=== PATIENT | female | born 1985 | race African-American/Black ===

== ENCOUNTER 2016-12-03 18:38 | Emergency (ER) | payer MEDICAID, OTHER ==
[~2016-12-03] VITALS: Ht 175.3 cm; Wt 104.3 kg
[~2016-12-03 18:38] MED LIST: ALBUTEROL SULF8.5 GM INH; AMOXICILLIN500 MG ORAL; AZITHROMYCIN250 MG ORAL; BACTRIM-DS1 EA ORAL; CEPHALEXIN500 MG ORAL; CIPROFLOXACIN500 M2 ORAL; CYCLOBENZAPRINE10 MG ORAL; DIFLUCAN150 MG PO; HYDROCORTISONE30 G2 RC; IBUPROFEN600 MG ORAL; IMODIUM2 MG ORAL; KEFLEX500 MG ORAL; METRONIDAZOLE500 MG ORAL; NAPROSYN500 M1 ORAL; NKM; PROMETHAZINE-C118 M1 ORAL; RANITIDINE HCL150 MG ORAL; ROBITUSSIN DM5 ML ORAL
--- NOTE | 2016-12-03 19:27 | Emergency Room Report ---
History of Present Illness General Chief Complaint: General Complaint Source: Patient Present Illness HPI 31 Yo Female presents to the ED C/O cough at night x 7 days, in addition to progressive 7/10 in severity localized left knee pain s/p pop sensation. pt. states pain exacerbated with walking and bending her knee. denies trauma or fall. denies nausea/vomiting/ fevers/ chills, rashes. or abdominal pain. denies blood in the stool, or dark tarry stools. denies erythema, increased temperature to palpation, or instability of the joint. Denies numbness tingling or loss of sensation or gross motor movements of the extremities, incontinence of bowel or bladder. Denies CP, edema, Palpitations, LOC, AMS, dizziness, Changes in Vision, Sensation, paresthesias, or a sudden severe headache. Allergies: Coded Allergies: No Known Allergies (Unverified , 02/28/13) Patient History Past Medical History: see triage record Past Surgical History: none Pertinent Family History: none Last Menstrual Period: 5 days Now: No Immunizations: UTD Reviewed Nursing Documentation: PMH: Agreed, PSxH: Agreed Nursing Documentation-PMH Past Medical History: No Stated History Hx Dialysis: No - UTI Review of Systems All Other Systems: negative except mentioned in HPI Physical Exam Vital Signs Date Time Temp Pulse Resp B/P Pulse Ox O2 Delivery O2 Flow Rate FiO2 12/03/16 18:42 98.2 76 16 96/64 98 Room Air Sp02 EP Interpretation: reviewed, normal General Appearance: no apparent distress, alert, GCS 15, non-toxic Head: normocephalic, atraumatic Eyes: bilateral eye PERRL, bilateral eye normal inspection ENT: hearing grossly normal, normal pharynx, no angioedema, normal voice Neck: full range of motion, supple/symm/no masses Respiratory: lungs clear, normal breath sounds, speaking full sentences Cardiovascular #1: regular rate, rhythm, no edema Gastrointestinal: normal bowel sounds, non tender, soft, no guarding, no rebound Rectal: deferred Musculoskeletal: back normal, gait/station normal, normal range of motion, tender - anterior ttp, no swelling, no increased laxity, no erythema Neurologic: alert, oriented x3, responsive, motor strength/tone normal, sensory intact, speech normal Psychiatric: judgement/insight normal, memory normal, mood/affect normal Skin: normal color, no rash, warm/dry, well hydrated Medical Decision Making PA Attestation Dr. Templeton is my supervising Physician whom patient management has been discussed with. Diagnostic Impression: Primary Impression: Acid reflux Qualified Codes: K21.9 - Gastro-esophageal reflux disease without esophagitis Additional Impressions: Cough Knee pain, left Qualified Codes: M25.562 - Pain in left knee ER Course 31 Yo Female presents to the ED C/O cough at night x 7 days, in addition to progressive 7/10 in severity localized left knee pain s/p pop sensation. pt. states pain exacerbated with walking and bending her knee. denies trauma or fall. denies nausea/vomiting/ fevers/ chills, rashes. or abdominal pain. denies blood in the stool, or dark tarry stools. denies erythema, increased temperature to palpation, or instability of the joint. Denies numbness tingling or loss of sensation or gross motor movements of the extremities, incontinence of bowel or bladder. Denies CP, edema, Palpitations, LOC, AMS, dizziness, Changes in Vision, Sensation, paresthesias, or a sudden severe headache. Ddx considered but are not limited to Fracture, dislocation, contusion, Sprain/ Strain/Spasm, septic joint, GERD, bronchitis, pneumonia, CHF.. just to name a few. Vital signs: are WNL, pt. is afebrile H&PE are most consistent with musculoskeletal injury will perform imaging to r/ o fractures/dislocations. pt. description of cough only at night is most consistent with GERD. no evidence to suggest pneumonia, ORDERS: - X-ray Left Knee 3 views - negative for fx, Dislocation, or significant soft tissue injury, per preliminary read in ED by Dr. Templeton - interpretation is scribed by PA. ED INTERVENTIONS: - IBU 600mg -Rafi wrap applied by geotechnical department manager. Pt. remains neurovascularly intact. DISCHARGE: At this time pt. is stable for d/c to home. Will provide printed patient care instructions, and any necessary prescriptions. Care plan and follow up instructions have been discussed with the patient prior to discharge. Last Vital Signs Date Time Temp Pulse Resp B/P Pulse Ox O2 Delivery O2 Flow Rate FiO2 12/03/16 18:42 98.2 76 16 96/64 98 Room Air Disposition: HOME, SELF-CARE Condition: Stable Scripts D-Methorphan Hb/Prometh Hcl* (PROMETHAZINE-DM SYRUP*) 118 Ml Syrup 5 ML ORAL Q6H Y for For Cough, #118 ML 0 Refills Prov: Heather Vazquez 12/03/16 Ranitidine Hcl* (ZANTAC*) 150 Mg Tablet 150 MG ORAL TWICE A DAY for 14 Days, #30 TAB Prov: Heather Vazquez 12/03/16 Ibuprofen* (MOTRIN*) 600 Mg Tablet 600 MG ORAL THREE TIMES A DAY, #30 TAB 0 Refills Prov: Heather Vazquez 12/03/16 Referrals: [facility] (PCP) Patient Instructions: Food Choices for Gastroesophageal Reflux Disease, Adult, [id number], Knee Pain, [id number] Additional Instructions: Take medications as directed. Follow up with a Primary Care Provider in 3-5 days, even if your symptoms have resolved. --Please review list of primary care clinics, if you do not already have a primary care provider Return sooner to ED if new symptoms occur, or current symptoms become worse. - Please note that this Emergency Department Report was dictated using [employer] psychologist technology software, occasionally this can lead to erroneous entry secondary to interpretation by the dictation equipment. Heather Vazquez Dec 03, 2016 19:27
[2016-12-03] MEDS ORDERED: IBUPROFEN600 MG ORAL (19:55)
[2016-12-03] MEDS ORDERED: ZANTAC150 MG ORAL (19:55)
[2016-12-03] MEDS ORDERED: PROMETHAZINE-D118 ML ORAL (19:55)
[2016-12-03 20:00] VITALS: BP_SYST 102; BP_SYST 96; BP_DIAS 64
--- NOTE | 2016-12-04 11:55 | Diagnostic Imaging Report ---
Indications: Left knee pain Technique: 3 views of the left knee Findings: Comparison: None No fracture, dislocation, lytic destruction, periosteal reaction, joint space widening or effusion, surrounding soft tissue abnormality, or other acute changes demonstrated. No deformity, alignment abnormality, arthritic change, soft tissue calcification, or other chronic changes demonstrated. IMPRESSION: Negative left knee series.
== END 2016-12-03 20:00 | disposition home or self-care (01) ==
LOC: EMR 19:03
DX: K21.9 Gastro-esophageal reflux disease without esophagitis (principal); R05 Cough; M25.562 Pain in left knee
CPT/HCPCS: 29530; 99284

== ENCOUNTER 2017-06-04 21:08 | Emergency (ER) | payer MEDICAID ==
[~2017-06-04] VITALS: Ht 175.3 cm; Wt 106.6 kg
[~2017-06-04 21:08] MED LIST changes: +PROMETHAZINE-D118 ML ORAL; +ZANTAC150 MG ORAL
[2017-06-04 21:15] VITALS: BP 112/78
--- NOTE | 2017-06-04 21:36 | Emergency Room Report ---
History of Present Illness General Chief Complaint: Upper Extremity Injury Source: Patient Present Illness HPI This is a 32-year-old female who has no past medical history. She presents with a mom to her left elbow area for the last to 3 months. Tenderness when he bumped against something. No fever chills but no swelling. Was concerned. No other complaint. Allergies: Coded Allergies: No Known Allergies (Unverified , 02/28/13) Patient History Past Medical History: see triage record, old chart reviewed Past Surgical History: none Pertinent Family History: none Social History: Denies: smoking Last Menstrual Period: 05/22/17 Now: No Immunizations: other Reviewed Nursing Documentation: PMH: Agreed, PSxH: Agreed Nursing Documentation-PMH Past Medical History: No Stated History Hx Dialysis: No - UTI Review of Systems Eye: Denies: eye pain, blurred vision ENT: Denies: ear pain, nose congestion, throat swelling Respiratory: Denies: cough, shortness of breath Cardiovascular: Denies: chest pain, palpitations Gastrointestinal: Denies: abdominal pain, diarrhea, nausea, vomiting Musculoskeletal: Denies: back pain, joint pain Skin: Denies: rash Neurological: Denies: headache, numbness Endocrine: Denies: increased thirst, increased urine Hematologic/Lymphatic: Denies: easy bruising All Other Systems: negative except mentioned in HPI Physical Exam Vital Signs Date Time Temp Pulse Resp B/P (MAP) Pulse Ox O2 Delivery O2 Flow Rate FiO2 06/04/17 21:12 97.9 73 20 109/70 96 Room Air vitals normal Sp02 EP Interpretation: reviewed, normal General Appearance: well appearing, no apparent distress, alert Head: normocephalic, atraumatic Eyes: bilateral eye PERRL, bilateral eye EOMI ENT: hearing grossly normal, normal pharynx Neck: full range of motion, supple, no meningismus Respiratory: chest non-tender, lungs clear, normal breath sounds Cardiovascular #1: regular rate, rhythm, no murmur Gastrointestinal: normal bowel sounds, non tender, no mass, no organomegaly, no bruit, non-distended Musculoskeletal: back normal, gait/station normal, normal range of motion, other - Small mobile mass of 2 mm to the left olecranon process area. Neurologic: alert, oriented x3 Psychiatric: mood/affect normal Skin: warm/dry Medical Decision Making Diagnostic Impression: Primary Impression: Ganglion cyst ER Course Patient with a mobile mass consistent with a ganglion cyst. No evidence of neoplastic process but no evidence of fracture. We'll discharge home. Last Vital Signs Date Time Temp Pulse Resp B/P (MAP) Pulse Ox O2 Delivery O2 Flow Rate FiO2 06/04/17 21:12 97.9 73 20 109/70 96 Room Air Status: unchanged Disposition: HOME, SELF-CARE Condition: Stable Additional Instructions: Followup with your Dr. in 7 days as needed. Return if symptom worsen. ELVIA HAIR M.D. Jun 04, 2017 21:36
[2017-06-04 21:40] VITALS: BP 120/74
[2017-06-04 21:45] VITALS: BP 120/74
== END 2017-06-04 21:45 | disposition home or self-care (01) ==
LOC: EMR 21:25
DX: M67.422 Ganglion, left elbow (principal)
CPT/HCPCS: 99282

== ENCOUNTER 2017-07-18 15:34 | Emergency (ER) | payer MEDICAID ==
[~2017-07-18] VITALS: Ht 175.3 cm; Wt 108.4 kg
[2017-07-18 16:21] VITALS: BP 110/63
--- NOTE | 2017-07-18 16:48 | Emergency Room Report ---
History of Present Illness General Chief Complaint: Female Urogenital Problems Present Illness HPI 32 yo female patient presents to ER complaining of UTI symptoms. Patient reports hx of UTI 3 weeks ago treated with abx; prescribed by urologist ; does not know what medication. Patient reports dysuria, frequency, urgency. Reports LMP a few days ago; normal for her. Denies blood in urine, discharge. Reports foul smell. Denies open sores or rash. Denies bowel or bladder incontinence. Patient also complains of back and generalized abdominal pain. Reports back pain has been present prior to UTI symptoms. Reports feels like she "pulled a muscle". Patient reports this feels like a UTI. Reports taking AZO with no relief of symptoms. Reports , in sexually monogamous relationship; without symptoms. Patient denies chest pain, SOB, fever, rash. Denies diarrhea, constipation, nausea, vomiting. Allergies: Coded Allergies: No Known Allergies (Unverified , 02/28/13) Patient History Past Medical History: see triage record Last Menstrual Period: 07/14/17 Now: No : 3 Para: 2 Reviewed Nursing Documentation: PMH: Agreed, PSxH: Agreed Nursing Documentation-PMH Hx Dialysis: No - UTI Review of Systems All Other Systems: negative except mentioned in HPI Physical Exam Vital Signs Date Time Temp Pulse Resp B/P (MAP) Pulse Ox O2 Delivery O2 Flow Rate FiO2 07/18/17 16:07 97.4 101 22 110/63 94 Room Air 97.3 Sp02 EP Interpretation: reviewed, normal General Appearance: well appearing, no apparent distress, alert, GCS 15 Head: normocephalic, atraumatic Eyes: bilateral eye normal inspection, bilateral eye PERRL ENT: hearing grossly normal, normal pharynx, no angioedema, normal voice, uvula midline, moist mucus membranes Neck: full range of motion Respiratory: lungs clear, normal breath sounds, no rhonchi, no respiratory distress, no accessory muscle use, no wheezing, speaking full sentences Cardiovascular #1: regular rate, rhythm, no edema Gastrointestinal: non tender, soft, no mass, non-distended, no guarding, no rebound Genitourinary: no CVA tenderness, deferred Musculoskeletal: back normal, digits/nails normal, gait/station normal, normal range of motion, non-tender Neurologic: alert, oriented x3, responsive, motor strength/tone normal, sensory intact Psychiatric: mood/affect normal Skin: no rash Lymphatic: no adenopathy Medical Decision Making PA Attestation Dr. Pendleton is my supervising Physician whom patient management has been discussed with. Diagnostic Impression: Primary Impression: UTI (urinary tract infection) Additional Impression: Back pain ER Course Pt presents to ED c/o urinary symptoms and back pain. DDX considered but are not limited to cystitis, pyelonephritis, STI, vaginitis, . VITAL SIGNS are WNL, patient is afebrile. PE benign, no CVA tenderness, no abdominal TTP. Ordered UA, urine and medication for pain. ER COURSE UA results indicate UTI, nitrite positive, will treat accordingly. Urine negative. Results discussed with patient. Reports last dosage of abx was for 3 days, informed patient abx usually for longer than 3 days. Patient instructed that back pain may be related to UTI but due to chronicity of pain may be musculoskeletal in nature. Will provide lidocaine patches for relief of pain symptoms. Followup with primary care for further treatment and referral as needed. Patient is resting comfortably in chair, nontoxic appearing, in no acute distress. Patient states they feel better and is ready to go home. DISCHARGE: -Rx provided for Cipro -Rx provided for Lidocaine patch Pt. stable for discharge to home. Patient resting comfortably, in no acute distress, nontoxic appearing, talking and smiling without difficulty. Will provide with patient care instructions and any necessary prescriptions. Patient understands and agrees to treatment plan. Patient encouraged to drink plenty of fluids. Patient to take medication as instructed. Care plan and follow-up instructions provided. Patient questions asked and answered. Patient instructed to follow-up with primary care provider in 3 - 5 days. ER precautions given. Patient instructed to return to ER immediately for any new or worsening of symptoms. Including but not limited to fever, worsening pain , intractable vomiting. Labs Test 07/18/17 16:05 Urine Color Brown Urine Appearance Clear Urine pH 5 (4.5-8.0) Urine Specific [place] 1.020 (1.005-1.035) Urine Protein 1+ (NEGATIVE) Urine Glucose (UA) Negative (NEGATIVE) Urine Ketones Negative (NEGATIVE) Urine Occult Blood 1+ (NEGATIVE) Urine Nitrite Positive (NEGATIVE) Urine Bilirubin 3+ (NEGATIVE) Urine Ictotest Negative Urine Urobilinogen 8 MG/DL (0.0-1.0) Urine Leukocyte Esterase Negative (NEGATIVE) Urine RBC 2-4 /HPF (0 - 2) Urine WBC 5-10 /HPF (0 - 2) Urine Squamous Epithelial Cells Few /LPF (NONE/OCC) Urine Amorphous Sediment Few /LPF (NONE) Urine Bacteria Few /HPF (NONE) Urine HCG, Qualitative Negative Last Vital Signs Date Time Temp Pulse Resp B/P (MAP) Pulse Ox O2 Delivery O2 Flow Rate FiO2 07/18/17 16:21 97.3 22 110/63 94 Room Air 97.3 07/18/17 16:07 101 Disposition: HOME, SELF-CARE Condition: Stable Scripts Ciprofloxacin Hcl* (CIPROFLOXACIN HCL*) 500 Mg Tablet 500 MG ORAL EVERY 12 HOURS for 7 Days, #14 TAB 0 Refills Prov: Quintin Guzman 07/18/17 Lidocaine (Lidocaine) 1 Each Adh..patch 700 MG TP BID for 7 Days, #14 PATCH Prov: Quintin Guzman 07/18/17 Patient Instructions: Back Pain, Adult, [id number], Urinary Tract Infection Additional Instructions: Followup with primary care provider in 3 -5 days. Take medications as directed. Patient questions asked and answered. ER precautions given, patient instructed to return to ER immediately for any new or worsening of symptoms. Quintin Guzman Jul 18, 2017 16:48
[2017-07-18 16:54] LABS: APPEARANCE,URINE CLEAR; BILIRUBIN, URINE 3+ (NEGATIVE); COLOR,URINE BROWN; GLUCOSE, URINE (UA) NEGATIVE (NEGATIVE); KETONES,URINE NEGATIVE (NEGATIVE); LEUKOCYTE ESTERASE ,URINE NEGATIVE (NEGATIVE); NITRITE,URINE POSITIVE (NEGATIVE); PH,URINE 5 (4.5-8.0); PROTEIN,URINE 1+ (NEGATIVE); UROBILINOGEN,URINE 8 MG/DL (0.0-1.0)
[2017-07-18] MEDS ORDERED: LIDOCAINE700 M1 TP (17:18)
[2017-07-18] MEDS ORDERED: CIPROFLOXACIN500 M2 ORAL (17:18)
[2017-07-18 17:32] VITALS: BP 110/63
== END 2017-07-18 17:30 | disposition home or self-care (01) ==
LOC: EMR 17:24
DX: N39.0 Urinary tract infection, site not specified (principal)
CPT/HCPCS: 81003; 81025; 99284

== ENCOUNTER 2018-02-10 20:26 | Emergency (ER) | payer MEDICAID ==
[~2018-02-10] VITALS: Ht 175.3 cm; Wt 105.2 kg
[~2018-02-10 20:26] MED LIST changes: +LIDOCAINE700 M1 TP
[2018-02-10 20:50] VITALS: BP 104/67
[2018-02-10] MEDS ORDERED: Acetaminophen 500mg (ES) tab ORAL ONE (21:00)
[2018-02-10 21:52] LABS: APPEARANCE,URINE CLOUDY; BILIRUBIN, URINE NEGATIVE (NEGATIVE); COLOR,URINE YELLOW; GLUCOSE, URINE (UA) NEGATIVE (NEGATIVE); KETONES,URINE NEGATIVE (NEGATIVE); LEUKOCYTE ESTERASE ,URINE NEGATIVE (NEGATIVE); NITRITE,URINE NEGATIVE (NEGATIVE); PH,URINE 5 (4.5-8.0); PROTEIN,URINE NEGATIVE (NEGATIVE); UROBILINOGEN,URINE NORMAL MG/DL (0.0-1.0)
[2018-02-10] MEDS ORDERED: ACETAMINOPHEN500 M3 ORAL (22:05)
[2018-02-10] MEDS ORDERED: MELOXICAM7.5 MG PO (22:05)
[2018-02-10 22:18] VITALS: BP 104/67
--- NOTE | 2018-02-11 02:25 | Emergency Room Report ---
History of Present Illness General Chief Complaint: Pain Source: Patient Present Illness HPI Patient is a 32-year-old female presented after increased left-sided ankle pain. Patient reports having injury while walking down stairs. She reports having inverted her ankle. Patient denies any numbness or tingling. She denies any foot pain. The patient had been able to bear weight but had increased pain with ambulation. Allergies: Coded Allergies: No Known Allergies (Unverified , 02/28/13) Patient History Past Medical History: see triage record Last Menstrual Period: 3 weeks ago Now: No Reviewed Nursing Documentation: PMH: Agreed; PSxH: Agreed Nursing Documentation-PMH Past Medical History: No Stated History Hx Dialysis: No - UTI Review of Systems All Other Systems: negative except mentioned in HPI Physical Exam Vital Signs Date Time Temp Pulse Resp B/P (MAP) Pulse Ox O2 Delivery O2 Flow Rate FiO2 02/10/18 20:35 99.4 95 16 105/71 97 Room Air 99.3 General Appearance: well appearing, no apparent distress, alert, GCS 15 Head: normocephalic, atraumatic ENT: hearing grossly normal, normal voice Neck: full range of motion, supple Respiratory: no respiratory distress, speaking full sentences Cardiovascular #1: normal inspection, regular rate, rhythm Musculoskeletal: no calf tenderness Neurologic: normal gait Psychiatric: mood/affect normal Skin: no rash Medical Decision Making Diagnostic Impression: Primary Impression: Ankle sprain ER Course Patient presented for ankle pain. Differential diagnosis included was not limited to vascular insufficiency, fracture, osteomyelitis, sprain, deep venous thrombosis. Patient has a benign exam and does not appear to require any further imaging or laboratory testing at this time. Per [place] ankle rules the patient does not require imaging at this time. The patient placed in an Rafi wrap. She was given no for work and advised to keep her leg elevated ice and take anti-inflammatory medications. test was negative. Patient is advised to return if any worsening condition or if any changes in status that are concerning. This report is dictated with [employer] construction framer software which may occasionally lead to discrepancies related to use of this software. Last Vital Signs Date Time Temp Pulse Resp B/P (MAP) Pulse Ox O2 Delivery O2 Flow Rate FiO2 02/10/18 22:18 98.0 80 18 104/67 99 Room Air 98.0 Status: improved Disposition: HOME, SELF-CARE Condition: Stable Scripts Acetaminophen* (ACETAMINOPHEN EXTRA STRENGTH*) 500 Mg Tablet 500 MG ORAL Q8H PRN for Fever/Headache/Mild Pain, #30 TAB Prov: Julio C Pendleton MD 02/10/18 Meloxicam* (MELOXICAM*) 7.5 Mg Tablet 7.5 MG PO DAILY, #30 TAB Prov: Julio C Pendleton MD 02/10/18 Departure Forms: Return to Work Return to Work in (Days): 2 Other Restrictions: Keep foot elevated as much as possible, no climbing stairs for 2 weeks Patient Instructions: Ankle Sprain, [id number] Additional Instructions: keep leg elevated, no climbing stairs for 2 weeks. Follow up with primary care physician if pain persists. Julio C Pendleton MD Feb 11, 2018 02:25
== END 2018-02-10 22:24 | disposition home or self-care (01) ==
LOC: EMR 21:15
DX: S93.402A Sprain of unspecified ligament of left ankle, initial encounter (principal); X50.1XXA Overexertion from prolonged static or awkward postures, initial encounter; Y93.89 Activity, other specified; Y92.018 Other place in single-family (private) house as the place of occurrence of the external cause
CPT/HCPCS: 81003; 81025; 99283

== ENCOUNTER 2018-12-09 22:01 | Emergency (ER) | payer MEDICAID ==
[~2018-12-09] VITALS: Ht 175.3 cm; Wt 104.8 kg
[~2018-12-09 22:01] MED LIST changes: +ACETAMINOPHEN500 M3 ORAL; +MELOXICAM7.5 MG PO
[2018-12-09] MEDS ORDERED: ACETAZOLAMIDE500 MG ORAL (22:16)
--- NOTE | 2018-12-09 22:44 | Emergency Room Report ---
History of Present Illness General Chief Complaint: Pain Source: Patient Present Illness HPI 33-year-old female with a history of papilledema presents for evaluation of right great toe numbness/tingling. Symptoms began approximately 3 days ago. She states she has intermittent tingling over the distal tip of the right great toe. There is no pain or injury. She denies wearing any significant compressing shoes such as high heels and normally wears sandals or tennis shoes which are comfortable. She has no change in her gait or any difficulty ambulating. No other numbness or tingling reported. She presented to the emergency department today concerned that it may be related to a spider bite she had on the right arm several days ago however she has no symptoms leftover from that injury. She is simply requesting evaluation. She is denying any headaches, visual changes, changes in coordination, confusion, neck or back pain , chest pain, shortness of breath, abdominal pain, vomiting. Otherwise in her usual state of health. PMH: Papilledema PSH: section Allergies: Denies Social Hx: Denies alcohol, tobacco or drug use Allergies: Coded Allergies: No Known Allergies (Unverified , 02/28/13) Patient History Last Menstrual Period: Now: No Nursing Documentation-PMH Hx Dialysis: No - UTI Review of Systems All Other Systems: negative except mentioned in HPI Physical Exam Vital Signs Date Time Temp Pulse Resp B/P (MAP) Pulse Ox O2 Delivery O2 Flow Rate FiO2 12/09/18 22:12 98.6 79 16 108/67 (81) 97 Room Air General: Awake and alert, no acute distress HEENT: NC/AT. EOMI. no nystagmus. Facial expression's are symmetrical. Resp: Normal work of breathing. Skin: Intact. No abrasions, laceration or rash over the exposed skin. No lesions, no erythema MSK: Normal tone and bulk. Moving all extremities. No obvious deformity. No tenderness in the ankles, foot or toes bilaterally. Full range of motion in the lower extremities. Gait is steady. Neuro: Awake and alert. Mentating appropriately. Visual chatterjee are full. Extraocular movements are intact. Facial expressions are symmetrical. Sensation is intact over the dermatomes of lower extremity bilaterally. There is no dysmetria on [id number] and [id number] testing. Ambulate in with a steady gait. Medical Decision Making Diagnostic Impression: Primary Impression: Paresthesia of foot Qualified Codes: R20.2 - Paresthesia of skin ER Course Is a 33-year-old female who presents for evaluation of intermittent paresthesias in the right great toe. No obvious injury the patient was concerned it may be related to a recent spider bite. She also notes that she had a recent change in her medication as her Diamox was doubled to 500 mg. Physical and neurologic exam are overall reassuring. There are no focal deficits, no evidence of trauma. I do not believe she requires lab work or imaging at this time. This appears to be a peripheral nerve issue that can be followed up as an outpatient by her PMD if it does not improve in the next few days. She is well, ambulating with steady gait has a nonfocal exam and therefore I believe she is stable for discharge home. We discussed follow-up with her PMD as well as reasons to return to the emergency department. She understands and agrees with this treatment plan will be discharged home. Please note that this report is being documented using [employer] technology. This can lead to erroneous entry secondary to incorrect interpretation by the dictating instrument. Last Vital Signs Date Time Temp Pulse Resp B/P (MAP) Pulse Ox O2 Delivery O2 Flow Rate FiO2 12/09/18 22:12 98.6 79 16 108/67 (81) 97 Room Air Disposition: HOME, SELF-CARE Condition: Stable Referrals: [facility] Patient Instructions: Paresthesia, [id number] Additional Instructions: Your evaluated in the emergency department today for numbness/tingling of the great toe. Please follow-up with your primary care doctor, Dr. Coyne, if the symptoms do not improve the next few days. If you have worsening of the symptoms, loose feeling in the foot, inability to move the foot or develop pain in some kind you must return to emergency department for reevaluation. Continue current medications as prescribed. Return to the ED with any new or worsening symptoms Wil Gu MD Dec 09, 2018 22:44
--- NOTE | 2018-12-09 22:45 | NUR ---
ER DISCHARGE NOTE: Patient is cleared to be discharged per ERMD, pt is aox4, on room air, with stable vital signs. pt was given dc and prescription instructions, pt was able to verbalize understanding, pt id band removed without complications. pt is able to ambulate with steady gait. pt took all belongings.
[2018-12-09 22:46] VITALS: BP 108/67
== END 2018-12-09 22:49 | disposition home or self-care (01) ==
LOC: EMR 22:44
DX: R20.2 Paresthesia of skin (principal)
CPT/HCPCS: 99282

== ENCOUNTER 2019-01-28 21:52 | Emergency (ER) | payer MEDICAID ==
[~2019-01-28] VITALS: Ht 175.3 cm; Wt 104.3 kg
[~2019-01-28 21:52] MED LIST changes: +ACETAZOLAMIDE500 MG ORAL
[2019-01-28 21:55] VITALS: BP 105/67
--- NOTE | 2019-01-28 22:01 | NUR ---
ED Nurse Note: Pt walked in due to sorethroat x 3 days. Denies coughing or chills. Speaks in full and clear sentences. AAO x4 and ambulatory.
[2019-01-28] MEDS ORDERED: IBUPROFEN600 MG ORAL (22:33)
[2019-01-28] MEDS ORDERED: ZITHROMAX250 MG ORAL (22:33)
--- NOTE | 2019-01-28 22:33 | Emergency Room Report ---
History of Present Illness General Chief Complaint: Sore Throat Source: Patient Present Illness HPI Is a 33-year-old female with no past medical history. She presents with complaint of sore throat. Onset for last 3 days. Pain is 8 out of 10. Worse with swallowing. No fever chills. Does have slight cough. No drooling. Over- the-counter medication not helping. History of same. Allergies: Coded Allergies: No Known Allergies (Unverified , 02/28/13) Patient History Past Medical History: see triage record, old chart reviewed Past Surgical History: none Pertinent Family History: none Social History: Denies: smoking Last Menstrual Period: 01/26/19 Now: No : 3 Para: 3 Immunizations: other Reviewed Nursing Documentation: PMH: Agreed; PSxH: Agreed Nursing Documentation-PMH Past Medical History: No History, Except For Hx Dialysis: No - UTI Review of Systems Eye: Denies: eye pain, blurred vision ENT: Reports: throat pain; Denies: ear pain, nose congestion, throat swelling Respiratory: Denies: cough, shortness of breath Cardiovascular: Denies: chest pain, palpitations Gastrointestinal: Denies: abdominal pain, diarrhea, nausea, vomiting Musculoskeletal: Denies: back pain, joint pain Skin: Denies: rash Neurological: Denies: headache, numbness Endocrine: Denies: increased thirst, increased urine Hematologic/Lymphatic: Denies: easy bruising All Other Systems: negative except mentioned in HPI Physical Exam Vital Signs Date Time Temp Pulse Resp B/P (MAP) Pulse Ox O2 Delivery O2 Flow Rate FiO2 01/28/19 21:55 98.4 69 18 105/67 96 Room Air Vitals normal Sp02 EP Interpretation: reviewed, normal General Appearance: well appearing, no apparent distress, alert Head: normocephalic, atraumatic Eyes: bilateral eye PERRL, bilateral eye EOMI ENT: hearing grossly normal, tonsillar swelling, pharyngeal erythema, tonsillar exudate Neck: full range of motion, supple, no meningismus Respiratory: chest non-tender, lungs clear, normal breath sounds Cardiovascular #1: regular rate, rhythm, no murmur Gastrointestinal: normal bowel sounds, non tender, no mass, no organomegaly, no bruit, non-distended Musculoskeletal: back normal, gait/station normal, normal range of motion Psychiatric: mood/affect normal Medical Decision Making Diagnostic Impression: Primary Impression: Tonsillitis ER Course Presents with acute tonsillitis. Most likely viral in nature. She does have exudates and will treat for bacterial infection. No evidence of peritonsillar abscess, retropharyngeal abscess or Rod angina. Will discharge home. Last Vital Signs Date Time Temp Pulse Resp B/P (MAP) Pulse Ox O2 Delivery O2 Flow Rate FiO2 01/28/19 21:55 98.4 69 18 105/67 (80) 96 Room Air Status: unchanged Disposition: HOME, SELF-CARE Condition: Stable Scripts Azithromycin* (ZITHROMAX*) 250 Mg Tablet 250 MG ORAL DAILY, #6 TAB 0 Refills Take two tables once daily for 1 day, then one tablet once daily for 4 days. Prov: Arnold Sandoval MD 01/28/19 Ibuprofen* (MOTRIN*) 600 Mg Tablet 600 MG ORAL THREE TIMES A DAY, #30 TAB 0 Refills Prov: Arnold Sandoval MD 01/28/19 Patient Instructions: Tonsillitis Additional Instructions: Increase fluids. Salt water gargle. Follow-up with your doctor in 7 days if not better. Return if worse. Arnold Sandoval MD Jan 28, 2019 22:33
[2019-01-28 22:41] VITALS: BP 112/70
--- NOTE | 2019-01-28 22:41 | NUR ---
ER DISCHARGE NOTE: Patient is cleared to be discharged per ERMD, pt is aox4, on room air, with stable vital signs. pt was given dc and prescription instructions, pt was able to verbalize understanding, pt id band removed. pt is able to ambulate with steady gait. pt took all belongings.
== END 2019-01-28 22:41 | disposition home or self-care (01) ==
LOC: EMR 22:14
DX: J03.90 Acute tonsillitis, unspecified (principal)
CPT/HCPCS: J7512; Z7502; 99282

== ENCOUNTER 2020-03-11 12:42 | Emergency (ER) | payer MEDICAID ==
[~2020-03-11] VITALS: Ht 175.3 cm; Wt 105.2 kg
[~2020-03-11 12:42] MED LIST changes: +ZITHROMAX250 MG ORAL
--- NOTE | 2020-03-11 12:59 | NUR ---
ED Nurse Note: pt presents to ED c/o leg rash to back of R thigh and inner thigh x1 week. pt describes small clusters of red bumps that are painful and itchy. pt states that she has been rubbing neosporin and cortisone cream over the areas with mild relief of symptoms, states that she had chicken pox as a kid
[2020-03-11 13:01] VITALS: BP 134/87
[2020-03-11] MEDS ORDERED: IBUPROFEN600 M1 ORAL (13:04)
[2020-03-11] MEDS ORDERED: VALACYCLOVIR500 MG ORAL (13:04)
[2020-03-11 13:10] VITALS: BP 134/87
--- NOTE | 2020-03-11 13:46 | Emergency Room Report ---
History of Present Illness General Chief Complaint: Skin Rash/Abscess Source: Patient Present Illness HPI Patient presents emergency department today complaining of a rash on the right lower extremity going on for the last couple of days. States that is very painful feels like the pain is deep. The rash seems to be distribution L3 dermatome. Patient states that she did have a history of chickenpox as a child. She denies any fever nausea vomiting diarrhea chills. No other complaints are noted. Symptoms noted moderate. No other modifying factors. No other associated signs and symptoms. No other complaints were noted. 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 Patient History Past Medical History: none Past Surgical History: none Pertinent Family History: none Social History: Denies: smoking, alcohol use, drug use Last Menstrual Period: 02/27 Reviewed Nursing Documentation: PMH: Agreed; PSxH: Agreed Nursing Documentation-PMH Hx Dialysis: No - UTI Review of Systems All Other Systems: negative except mentioned in HPI Physical Exam Vital Signs Date Time Temp Pulse Resp B/P (MAP) Pulse Ox O2 Delivery O2 Flow Rate FiO2 03/11/20 12:47 98.1 84 18 134/87 (103) 97 Room Air Sp02 EP Interpretation: reviewed, normal General Appearance: normal inspection, well appearing, no apparent distress, alert Head: atraumatic Eyes: bilateral eye normal inspection ENT: normal ENT inspection, hearing grossly normal, normal voice Neck: normal inspection, full range of motion, supple, no bony tend Respiratory: normal inspection, lungs clear, normal breath sounds, no respiratory distress, no retraction, no wheezing Cardiovascular #1: regular rate, rhythm, no edema Gastrointestinal: normal inspection, normal bowel sounds, non tender, soft, no guarding, no hernia Genitourinary: no CVA tenderness Musculoskeletal: normal inspection, back normal, normal range of motion Neurologic: alert, responsive, speech normal, normal inspection Psychiatric: normal inspection, judgement/insight normal, mood/affect normal Skin: other - Shingles vesicular rash in the right lower extremity L3 distribution Medical Decision Making Diagnostic Impression: Primary Impression: Shingles ER Course Patient presents emergency department today complaint of rash on the right lower extremity. Differential considerations include cellulitis, bug bite, eczema, shingles. Patient's exam is consistent with shingles. I felt the patient would benefit from Valtrex. Will provide patient with prescription. Patient is advised to follow up with primary doctor in 2-3 days and return the emergency room for any worsening symptoms and as needed. Last Vital Signs Date Time Temp Pulse Resp B/P (MAP) Pulse Ox O2 Delivery O2 Flow Rate FiO2 03/11/20 13:10 98.1 76 18 134/87 97 Room Air Status: improved Disposition: HOME, SELF-CARE Condition: Stable Scripts Ibuprofen* (MOTRIN*) 600 Mg Tablet 600 MG ORAL Q6H PRN for FOR PAIN, #20 TAB 0 Refills Prov: Brian Zaldivar MD 03/11/20 Valacyclovir Hcl* (VALTREX*) 500 Mg Tablet 1000 MG ORAL TID for 7 Days, TAB Prov: Brian Zaldivar MD 03/11/20 Patient Instructions: Cedric, [id number] Brian Zaldivar MD Mar 11, 2020 13:46
== END 2020-03-11 13:10 | disposition home or self-care (01) ==
LOC: EMR 13:05
DX: B02.9 Zoster without complications (principal)
CPT/HCPCS: 99282

== ENCOUNTER 2020-03-19 17:06 | Emergency (ER) | payer MEDICAID ==
[~2020-03-19] VITALS: Ht 175.3 cm; Wt 104.8 kg
[~2020-03-19 17:06] MED LIST changes: +IBUPROFEN600 M1 ORAL; +VALACYCLOVIR500 MG ORAL
[2020-03-19 17:50] VITALS: BP 125/70
--- NOTE | 2020-03-19 17:50 | NUR ---
ED Nurse Note: Pt walked into ED for inner and outer thigh rash. Pt said the last visit she was diagnosed with shingles and now wants a second opinion. Pt is alert and orientedx4, ambulatory. NO pus or discharge.
--- NOTE | 2020-03-19 19:27 | Emergency Room Report ---
History of Present Illness General Chief Complaint: Skin Rash/Abscess Source: Patient Present Illness HPI 35-year-old female presents to the emergency department for second opinion regarding a rash that she recently was evaluated for on her right posterior thigh. Patient reports having pain in that leg prior to presentation of the rash. Patient reports the rash was only on the inner thigh and wrapped around towards the posterior thigh. Patient denies history of STIs. Patient reports that she was diagnosed here with shingles. She does report she had the chickenpox as a kid. Patient states that she followed up with dermatology who diagnosed her as herpes. Patient is here because she wants a second opinion. Patient states she has been taking medications as she was directed and rash does seem to be improving. Patient reports she was given lab slip for herpes testing by her spool fixer she states she has not had her blood drawn yet. She denies fevers or chills. She denies rash on the face near the eyes and the nose. She denies ever having lesions in the genital area. No other aggravating or relieving factors. Allergies: Coded Allergies: No Known Allergies (Unverified , 02/28/13) COVID-19 Screening Contact w/high risk pt: No Recent Travel to affected area: No Experienced COVID-19 symptoms?: No COVID-19 Testing performed UR COORDINATOR: No Patient History Past Medical History: see triage record Past Surgical History: none Pertinent Family History: none Last Menstrual Period: 02/17/2020 Now: No Reviewed Nursing Documentation: PMH: Agreed; PSxH: Agreed Nursing Documentation-PMH Past Medical History: No Stated History Hx Dialysis: No - UTI Review of Systems All Other Systems: negative except mentioned in HPI Physical Exam Vital Signs Date Time Temp Pulse Resp B/P (MAP) Pulse Ox O2 Delivery O2 Flow Rate FiO2 03/19/20 17:12 97.3 75 22 127/69 (88) 100 Room Air Sp02 EP Interpretation: reviewed, normal General Appearance: no apparent distress, alert, GCS 15, non-toxic Head: normocephalic, atraumatic Eyes: bilateral eye normal inspection, bilateral eye PERRL ENT: hearing grossly normal, normal voice, other - No swelling of the lips or tongue. No evidence of rash near the eyes of the nose Neck: full range of motion, other - No stridor Respiratory: chest non-tender, lungs clear, normal breath sounds, no respiratory distress, no accessory muscle use, no wheezing, speaking full sente nces Cardiovascular #1: regular rate, rhythm, no edema Musculoskeletal: back normal, normal range of motion, gait/station normal, non- tender Neurologic: alert, motor strength/tone normal, oriented x3, sensory intact, responsive, speech normal Psychiatric: judgement/insight normal Skin: rash - Healing scabbed over discrete punctate lesions that are in a grouped distribution on the posterior thigh and inner thigh of the right leg. No genital lesions no blisters or vesicles noted at this time. No sloughing of the skin. Lymphatic: no adenopathy Medical Decision Making PA Attestation Dr. Braxton Is my supervising Physician whom patient management has been discussed with. Diagnostic Impression: Primary Impression: Rash and other nonspecific skin eruption ER Course 35-year-old female presents to the emergency department for second opinion regarding a rash that she recently was evaluated for on her right posterior thigh. Patient reports having pain in that leg prior to presentation of the rash. Patient reports the rash was only on the inner thigh and wrapped around towards the posterior thigh. Patient denies history of STIs. Patient reports that she was diagnosed here with shingles. She does report she had the chickenpox as a kid. Patient states that she followed up with dermatology who diagnosed her as herpes. Patient is here because she wants a second opinion. Patient states she has been taking medications as she was directed and rash does seem to be improving. Patient reports she was given lab slip for herpes testing by her spool fixer she states she has not had her blood drawn yet. She denies fevers or chills. She denies rash on the face near the eyes and the nose. She denies ever having lesions in the genital area. No other aggravating or relieving factors. Ddx considered but are not limited to cellulitis, scabies, shingles, varicella, dermatitis, urticaria, eczema, tinea, viral exanthem, SJS Vital signs: are WNL, pt. is afebrile H&PE are most consistent with what appears as shingles- healing, distribution not c/w herpes. ORDERS: none required at this time, the diagnosis is clinical ED INTERVENTIONS: None required at this time. I discussed with this patient that regardless whether her rash was caused by herpes or shingles the treatment is still the same. I encouraged patient to go ahead and have her blood work performed for definitive diagnosis of whether this was shingles or herpes. I discussed with patient that there is no definitive way to diagnose her clinically just by appearance. DISCHARGE: At this time pt. is stable for d/c to home. Will provide printed patient care instructions, and any necessary prescriptions. Care plan and follow up instructions have been discussed with the patient prior to discharge. Last Vital Signs Date Time Temp Pulse Resp B/P (MAP) Pulse Ox O2 Delivery O2 Flow Rate FiO2 03/19/20 17:12 97.3 75 22 127/69 (88) 100 Room Air Disposition: HOME, SELF-CARE Condition: Stable Patient Instructions: Herpes Simplex Test, Shingles, [id number] Additional Instructions: Take medications as directed. Follow up with a marketing programs specialist or your PCP, even if your symptoms have resolved. AND HAVE LABORATORY TESTING PERFORMED Return sooner to ED if new symptoms occur, or current symptoms become worse. - Please note that this Emergency Department Report was dictated using [employer]yanassistant executive housekeeper technology software, occasionally this can lead to erroneous entry secondary to interpretation by the dictation equipment. Heather Vazquez Mar 19, 2020 19:27
[2020-03-19 19:30] VITALS: BP 131/75
--- NOTE | 2020-03-19 19:30 | NUR ---
ER DISCHARGE NOTE: Patient is cleared to be discharged per ERMD, pt is aox4, on room air, with stable vital signs. pt was given dc instructions, pt was able to verbalize understanding, pt id band removed. pt is able to ambulate with steady gait. pt took all belongings.
== END 2020-03-19 19:30 | disposition home or self-care (01) ==
LOC: EMR 17:25
DX: R21 Rash and other nonspecific skin eruption (principal)
CPT/HCPCS: 99282

== ENCOUNTER 2020-07-28 20:12 | Emergency (ER) | payer MEDICAID ==
[~2020-07-28] VITALS: Ht 175.3 cm; Wt 104.3 kg
[2020-07-28 20:19] VITALS: BP 101/69
[2020-07-28 20:30] VITALS: BP 101/69
--- NOTE | 2020-07-28 20:45 | Emergency Room Report ---
History of Present Illness General Chief Complaint: Pain Source: Patient Present Illness HPI Disclaimer: Please note that this report is being documented using [employer] technology. This can lead to erroneous entry secondary to incorrect interpretation by the dictating instrument. HPI: 35-year-old otherwise healthy female presents for evaluation of left-sided jaw pain. Symptoms present approximately 2 weeks. She reports an intermittent aching over the left side of the face particularly over the left mandible at the angle of the mandible. Denies direct trauma. She is already seen her dentist and denies tooth ache or swelling. Denies gingival bleeding. Denies pain over the restoration. No obvious triggers for this pain to occur. Denies sharp shooting pain and describes it more of an ache. Denies facial swelling or redness. Denies skin breakdown or bleeding or discharge. Denies fever or chills. Speaking in full sentences, tolerating eating and drinking at baseline, denies neck pain or swelling. Denies headaches. Does report increased stress lately. PMH: Reviewed PSH: Reviewed Allergies: Reviewed Social Hx: Reviewed Allergies: Coded Allergies: No Known Allergies (Unverified , 02/28/13) COVID-19 Screening Contact w/high risk pt: No Recent Travel to affected area: No Experienced COVID-19 symptoms?: No COVID-19 Testing performed AUTO CUSTOMIZE PAINTER: No Patient History Now: No Nursing Documentation-PMH Hx Cardiac Problems: No Hx Hypertension: No Hx Pacemaker: No Hx Asthma: No Hx COPD: No Hx Diabetes: No Hx Cancer: No Hx Gastrointestinal Problems: No Hx Dialysis: No History Of Psychiatric Problem: No Hx Neurological Problems: No Hx Cerebrovascular Accident: No Hx Seizures: No Review of Systems All Other Systems: negative except mentioned in HPI Physical Exam Vital Signs Date Time Temp Pulse Resp B/P (MAP) Pulse Ox O2 Delivery O2 Flow Rate FiO2 07/28/20 20:19 97.5 16 101/69 (80) 100 Room Air General: Awake and alert, no acute distress HEENT: NC/AT. EOMI. no pain over the temples, TMJs. Able to fully extend the jaw. No dental caries, no gingival edema or skin breakdown. No swelling. No tenderness to palpation. Resp: Normal work of breathing Skin: Intact. No abrasions, laceration or rash over the exposed skin MSK: Normal tone and bulk. Moving all extremities. No obvious deformity. Neuro: Awake and alert. Mentating appropriately Medical Decision Making Diagnostic Impression: Primary Impression: Jaw pain ER Course Is a 35-year-old female presenting for evaluation of intermittent left-sided jaw pain. No evidence of trauma or infection. Little clinical concern for temporal arteritis or trigeminal neuralgia. Patient may have some mild TMJ due to recent stress or may be a possible sialolith though there is no evidence of obstruction. Instructed to use [id number] pain relievers, suck on hard candies to encourage salivation, wear a mouthguard at night and then to follow- up with PMD if symptoms persist. Do not believe he requires emergent labs or imaging at this time. Stable for outpatient follow-up. Instructed to return new or worsening symptoms. She understands and agrees with this treatment plan. Last Vital Signs Date Time Temp Pulse Resp B/P (MAP) Pulse Ox O2 Delivery O2 Flow Rate FiO2 07/28/20 20:30 97.5 16 101/69 100 Room Air Disposition: HOME, SELF-CARE Condition: Stable Patient Instructions: Dental Mouth Guards Additional Instructions: Please follow-up with your primary care doctor in the next 1 to 3 days to discuss this emergency department visit and for reevaluation. If you have any new or worsening symptoms please return to the emergency department for re evaluation. Please note that this report is being documented using [employer] technology. This can lead to erroneous entry secondary to incorrect interpretation by the dictating instrument. Wil Gu MD Jul 28, 2020 20:45
== END 2020-07-28 20:45 | disposition home or self-care (01) ==
LOC: EMR 20:33
DX: R68.84 Jaw pain (principal)
CPT/HCPCS: 99282